=== PATIENT | female | born 1965 | race Caucasian/White ===

== ENCOUNTER → 2016-11-13 | Outpatient (CLI) | payer OTHER ==
[~2016-11-13] MED LIST: ALBU6.7H INH; CITA20TA4 PO; CYAN1SUB SL; GEMF600T PO; METH500T3 PO; METO25TA3 PO; ONETAB13; TRAZ100T4 PO; TRAZ100T6 PO; ZOFR4TAB PO
--- NOTE | 2016-11-13 16:14 | RADRPT ---
EXAM DATE/TIME: 11/13/2016 15:25 [facility] COMPARISON: No previous studies available for comparison. INDICATIONS : Abdominal distension, right upper quadrant tenderness for 10 days MEDICAL HISTORY : None. SURGICAL HISTORY : None. ENCOUNTER: Initial ACUITY: 1 day PAIN SCORE: 0/10 LOCATION: Right upper quadrant FINDINGS: Supine view of the abdomen was performed. The abdominal bowel gas pattern is normal. No abnormal ma sses, calcifications, or organomegaly is seen. The osseous structures are unremarkable. CONCLUSION: No acute disease. Kush Burden MD on November 13, 2016 at 16:13 Board Certified Radiologist. This report was verified electronically.
== END ==
LOC: HRAD 15:10
PROVIDERS: ATTEND Nurse Practitioner Family
DX: R14.0 Abdominal distension (gaseous) (principal)
CPT/HCPCS: 74000

== ENCOUNTER → 2016-11-25 | Outpatient (CLI) | payer OTHER ==
[2016-11-25 08:49] LABS: AUTOMATED NEUTROPHIL # 6.6 TH/MM3 (1.8-7.7); BASOPHIL # 0.1 TH/MM3 (0-0.2); BASOPHIL % 0.8 % (0.0-2.0); EOSINOPHIL # 0.1 TH/MM3 (0-0.4); EOSINOPHIL % 1.2 % (0.0-4.0); HEMATOCRIT 36.6 % (35.0-46.0); HEMO FLAGS DIFF FINAL; LYMPH % 25.5 % (9.0-44.0); LYMPHOCYTE # 2.6 TH/MM3 (1.0-4.8); MEAN CELL VOLUME 82.6 FL (80.0-100.0); MEAN CORPUSCULAR HEMOGLOBIN 26.1 PG (27.0-34.0); MEAN CORPUSCULAR HGB CONC 31.6 % (32.0-36.0); MONO % 6.5 % (0.0-8.0); PLATELET COUNT 242 TH/MM3 (150-450); RED BLOOD COUNT 4.43 MIL/MM3 (4.00-5.30); RED CELL DISTRIBUTION WIDTH 16.4 % (11.6-17.2)
[2016-11-25 09:45] LABS: ALKALINE PHOSPHATASE 93 U/L (45-117); ALT (GPT) 20 U/L (10-53); ANION GAP 6 MEQ/L (5-15); AST (GOT) 24 U/L (15-37); BICARBONATE 26.7 MEQ/L (21.0-32.0); BLOOD UREA NITROGEN 26 MG/DL (7-18); CHLORIDE 108 MEQ/L (98-107); GLOMERULAR FILTRATION RATE 69 ML/MIN (>89); GLUCOSE,FASTING 95 MG/DL (74-99); HDL CHOLESTEROL 37.4 MG/DL (40.0-60.0); LDL CHOLESTEROL 168 MG/DL (0-99); SODIUM (NA) 141 MEQ/L (136-145); TOTAL BILIRUBIN ADULT 0.2 MG/DL (0.2-1.0)
[2016-11-25 09:48] LABS: POTASSIUM 4.3 MEQ/L (3.5-5.1)
== END ==
LOC: CLAB 08:21
PROVIDERS: ATTEND Family Medicine
DX: E78.5 Hyperlipidemia, unspecified (principal); F32.9 Major depressive disorder, single episode, unspecified; K21.9 Gastro-esophageal reflux disease without esophagitis; R14.0 Abdominal distension (gaseous); E66.9 Obesity, unspecified
CPT/HCPCS: 36415; 80053; 80061; 80074; 84443; 85025

== ENCOUNTER → 2017-01-21 | Outpatient (CLI) | payer OTHER ==
[~2017-01-21] MED LIST changes: -TRAZ100T4 PO
--- NOTE | 2017-01-21 16:58 | EKG ---
Date Performed: 01/21/2017 Time Performed: 13:30:18 PTAGE: 51 years EKG: Sinus rhythm . Normal ECG PREVIOUS TRACING : 06/16/2014 14.11 No significant change from previous tracing noted. DOCTOR: Juan Baez Interpretating Date/Time 01/21/2017 16:53:41
--- NOTE | 2017-01-23 16:21 | HM ---
Date Performed: 01/21/2017 Time Performed: 13:34:00 HOOKUP DATE: 01/21/17 01:34:00 PM Tue ANALYSIS START TIME: 01/21/2017 1:39:00 PM ANALYSIS END TIME: 01/22/2017 1:35:27 PM PATIENT AGE: 51 PATIENT HEIGHT PATIENT WEIGHT DRUG LIST: OUT PATIENT PATIENT DIAGNOSIS: HEART PALPITATIONS TEST NARRATIVE: The patient's average heart rate was 87 BPM. Heart rates greater than 120 B PM were noted 5% of the time. No episodes of bradycardia were noted. No pauses exceeding 2.0 sec onds were noted. 12 ventricular ectopics, which represented < 1% of the total beat count, were no marya. The highest ventricular ectopic frequency occurred from 01:00 PM to 02:00 PM Wed. During this time 3 VE(s) occurred. Ventricular ectopics were observed as 12 isolated beat(s) only. No couplets or runs were noted. 3 supraventricular ectopics, which represented < 1% of the total beat count, were noted. The highest supraventricular ectopic frequency occurred from 07:00 PM to 08:00 PM Tue. During this time 3 SVE(s) occurred. In channel 1, a single episode of ST depression (defined as - 1.0 mm or more) occurred at 12:40:25 PM Wed with a maximum depression of -2.1 mm. No episodes of ST depression (defined as -1.0 mm or more) were noted in channel 2. No episodes of ST depression (defin ed as -1.0 mm or more) were noted in channel 3. TEST INTERPRETATION: Patient undergoes a holter monitor to evaluate clinical palpatations. Only the expanded tracings are subject to interpretation. No diary is provided. Patient is in Sinus rhythm throughout the monitoring session with a HR varying from 59 to 145 beats per minute. There are rare isolated PVCs. There is one 3 beat run of supraventricular tachycardia at a rate of 162 bpm. No bola cardia is noted. Conclusions: Essentially normal holter monitor with one 3 beat episode of supraventr icular tachycardia. Rare PVCs with no complex ectopy. No significant tachy or bola arrhythmias. No diary is provided so it is unknown as to whether the patient is symptomatic. ADDENDUM: I am now have been made aware of the diary, and the patient has a multiplicity of symptoms including palpatations, nausea, SOB, chest discomforts, and arm pain. There's no correlation of her symptoms with any underly ing rhythm disturbance. The holter monitor would not be useful in the evaluation of chest discomfort. And any appropriate testing would be indicated. Signed by : Nicole Burkett
== END ==
LOC: HCAV 13:01
PROVIDERS: ATTEND Family Medicine
DX: R00.2 Palpitations (principal)
CPT/HCPCS: 93005; 93225; 93226

== ENCOUNTER → 2017-03-07 | Outpatient (CLI) | payer OTHER ==
[~2017-03-07] MED LIST changes: +DILT120C9 PO
[2017-03-07 14:30] LABS: ALKALINE PHOSPHATASE 109 U/L (45-117); TOTAL BILIRUBIN ADULT 0.2 MG/DL (0.2-1.0)
[2017-03-07 14:37] LABS: ALT (GPT) 24 U/L (10-53); ANION GAP 8 MEQ/L (5-15); AST (GOT) 22 U/L (15-37); BICARBONATE 25.7 MEQ/L (21.0-32.0); BLOOD UREA NITROGEN 18 MG/DL (7-18); CHLORIDE 109 MEQ/L (98-107); GLOMERULAR FILTRATION RATE 91 ML/MIN (>89); GLUCOSE,FASTING 82 MG/DL (74-99); POTASSIUM 3.9 MEQ/L (3.5-5.1); SODIUM (NA) 143 MEQ/L (136-145)
== END ==
LOC: CLAB 13:29
PROVIDERS: ATTEND Nurse Practitioner Family
DX: R19.8 Other specified symptoms and signs involving the digestive system and abdomen (principal)
CPT/HCPCS: 36415; 80053

== ENCOUNTER → 2017-03-18 | Outpatient (CLI) | payer OTHER ==
[~2017-03-18] MED LIST changes: +IOHEXOL 350 MG/ML 10 ML VIAL (for RAD DIAG) IV ONE
--- NOTE | 2017-03-18 16:00 | RADRPT ---
EXAM DATE/TIME: 03/18/2017 15:03 [facility] COMPARISON: No previous studies available for comparison. INDICATIONS : Left side abdomen pain. IV CONTRAST: 92 cc Omnipaque 350 (iohexol) IV ORAL CONTRAST: Prescribed oral contrast ingested. RADIATION DOSE: 13.16 CTDIvol (mGy) MEDICAL HISTORY : Hypertension. SURGICAL HISTORY : Hysterectomy. ENCOUNTER: Initial ACUITY: 1 day PAIN SCALE: 5/10 LOCATION: Left abdomen TECHNIQUE: Volumetric scanning of the abdomen and pelvis was performed. Using automated exposure control and ad justment of the mA and/or kV according to patient size, radiation dose was kept as low as reasonably achievable to obtain optimal diagnostic quality images. DICOM format image data is available electro nically for review and comparison. FINDINGS: LOWER LUNGS: The visualized lower lungs are clear. LIVER: There is a small subcentimeter hypodensity in the left lobe of the liver. This is nonspecific. There is no dilation of the biliary tree. No calcified gallstones. SPLEEN: Calcified granulomas are seen in the spleen. PANCREAS: Within normal limits. KIDNEYS: Normal in size and shape. There is no solid mass, stone or hydronephrosis. Scattered cysts are seen. These measure up to 1.7 cm. ADRENAL GLANDS: Within normal limits. VASCULAR: There is no aortic aneurysm. BOWEL/MESENTERY: The stomach, small bowel, and colon demonstrate no acute abnormality. There is no free intraperitone al air or fluid. ABDOMINAL WALL: Within normal limits. RETROPERITONEUM: There is no lymphadenopathy. BLADDER: No wall thickening or mass. REPRODUCTIVE: The patient is status post hysterectomy. No pelvic mass is seen. INGUINAL: There is no lymphadenopathy or hernia. MUSCULOSKELETAL: Within normal limits for patient age. CONCLUSION: 1. No acute abnormality seen. 2. Multiple calcified granulomas in the spleen. 3. Renal cysts. 4. Small hypodensity in the liver. The subcentimeter nodule is nonspecific. It likely represents a cy st or hemangioma. Daniele Barraza MD on March 18, 2017 at 15:45 Board Certified Radiologist. This report was verified electronically.
== END ==
LOC: HRAD 03-07 13:09
PROVIDERS: ATTEND Nurse Practitioner Family
DX: R19.8 Other specified symptoms and signs involving the digestive system and abdomen (principal)
CPT/HCPCS: 74177; Q9967